=== PATIENT | male | born 1975 | race African-American/Black ===

== ENCOUNTER 2021-02-23 22:19 | Emergency (ER) | payer OTHER ==
[2021-02-23 22:23] VITALS: BMI 26.4
[2021-02-23] MEDS ORDERED: ACETAMINOPHEN 1000 MG/100 ML VIAL (NON FORMULARY) IVPB ONE (23:04)
[2021-02-23] MEDS ORDERED: SODIUM CHLORIDE 0.9% 500 ML INFUS.BAG IV ONE (23:04)
[2021-02-23 23:40] LABS: BASO % 0.3 % (0-2.0); EOS % 0.4 % (0-4.5); HEMATOCRIT 37.8 % (35.4-49); HEMOGLOBIN 12.9 GM/dL (11.7-16.9); LYMPH % 5.9 % (8-40); MCH 30.8 pg (25.7-33.7); MCHC 34.3 g/dl (32.0-35.9); MEAN CELL VOLUME 89.9 fl (80-96); MEAN PLT VOLUME 7.6 fl (7.5-11.1); MONO % 9.3 % (3.8-10.2); NEUT % 84.1 % (42.8-82.8); PLATELET COUNT 241 10^3/uL (134-434); RDW 13.6 % (11.9-15.9); WHITE BLOOD COUNT 19.1 K/mm3 (4.0-10.0)
[2021-02-23 23:49] LABS: INR 1.23 (0.83-1.09); PROTHROMBIN TIME (PATIENT) 14.8 SEC (9.7-13.0)
[2021-02-24] LABS: CHLORIDE 100 mmol/L (98-107); SODIUM 136 mmol/L (136-145)
[2021-02-24 00:03] LABS: CALCIUM 8.5 mg/dL (8.5-10.1)
[2021-02-24 00:04] LABS: ALBUMIN 3.5 g/dl (3.4-5.0); ANION GAP 9 MMOL/L (8-16); BLOOD UREA NITROGEN 11.5 mg/dL (7-18); CO2 27 mmol/L (21-32); GLUCOSE,RANDOM 93 mg/dL (74-106)
[2021-02-24 00:07] LABS: CREATININE 0.8 mg/dL (0.55-1.3); SGOT/AST 16 U/L (15-37); SGPT/ALT 26 U/L (13-61)
[2021-02-24 00:08] LABS: BILIRUBIN,TOTAL 2.1 mg/dL (0.2-1); TOT PROT 7.1 g/dl (6.4-8.2)
[2021-02-24 00:10] LABS: ALK PHOS 68 U/L (45-117)
[2021-02-24] MEDS ORDERED: CLINDAMYCIN 900 MG PREMIX IVPB 900 MG/50 ML BAG IVPB ONE ×2 (00:49→01:19)
[2021-02-24] MEDS ORDERED: MAGNESIUM SULF 50% (8.12 MEQ/2 ML-1 GM VIAL) IVPB ONE (00:50)
[2021-02-24] MEDS ORDERED: POTASSIUM CHLORIDE ORAL LIQUID 20 MEQ/15 ML PO ONE (01:00)
[2021-02-24] MEDS ORDERED: DEXAMETHASONE SOD PHOSPHATE 10 MG/1 ML VIAL IVPUSH ONE (01:01)
[2021-02-24] MEDS ORDERED: DEXAMETHASONE SOD PHOSPHATE 10 MG/1 ML VIAL ONE (01:18)
[2021-02-24] MEDS ORDERED: MAGNESIUM SULFATE IN WATER 2 GM/50 ML IVPB IVPB ONE (01:19)
[2021-02-24] MEDS ORDERED: POTASSIUM CHLORIDE ORAL LIQUID 20 MEQ/15 ML ONE (01:19)
[2021-02-24 04:40] VITALS: BP 127/76; PULSE 77; TEMP 98.6
== END 2021-02-24 04:33 | disposition short-term general hospital (02) ==
LOC: JER 22:19
PROC: 3E0333Z Introduction of Anti-inflammatory into Peripheral Vein, Percutaneous Approach (ICD-10-PCS; principal; 2021-02-23)
PROC: 3E03329 Introduction of Other Anti-infective into Peripheral Vein, Percutaneous Approach (ICD-10-PCS; 2021-02-23)
PROC: 3E033GC Introduction of Other Therapeutic Substance into Peripheral Vein, Percutaneous Approach (ICD-10-PCS; 2021-02-23)
PROC: 3E033GC Introduction of Other Therapeutic Substance into Peripheral Vein, Percutaneous Approach (ICD-10-PCS; 2021-02-23)
DX: J03.90 Acute tonsillitis, unspecified (principal)
CPT/HCPCS: 36415; 70491-TC; 80053; 83605; 84484; 85025; 85610; 85730; 87040; 87880; 93005; 93010; 99285-25; C9803; J0131; J1100; Q9967; U0003; U0005

== ENCOUNTER 2021-06-30 17:52 | Emergency (ER) | payer OTHER ==
[2021-06-30 18:07] VITALS: BP 122/75; PULSE 86; TEMP 98.1; BMI 26.4
[2021-06-30] MEDS ORDERED: ALBUTEROL SO4 2.5/IPRATROPIUM 0.5 INH SOL 3 ML VIAL.NEB. NEB SCH (18:45)
[2021-06-30] MEDS ORDERED: predniSONE 20 MG TABLET (UD) PO ONE (18:52)
[2021-06-30] MEDS ORDERED: ALBUTEROL SO4 2.5/IPRATROPIUM 0.5 INH SOL 3 ML VIAL.NEB. NEB ONE (18:59)
[2021-06-30] MEDS ORDERED: predniSONE 20 MG TABLET (UD) ONE (18:59)
[2021-06-30] MEDS ORDERED: ALBUTEROL SO4 0.083% IH SOL 2.5 MG/3 ML VIAL.NEB. NEB ONE (19:01)
[2021-06-30] MEDS ORDERED: IPRATROPIUM BR 0.02% 0.5 MG/2.5 ML VIAL.NEB. NEB ONE (19:02)
== END 2021-06-30 19:58 | disposition home or self-care (01) ==
LOC: JER 17:52
PROC: 3E0F7GC Introduction of Other Therapeutic Substance into Respiratory Tract, Via Natural or Artificial Opening (ICD-10-PCS; principal; 2021-06-30)
DX: J45.901 Unspecified asthma with (acute) exacerbation (principal)
CPT/HCPCS: 71045-TC-FY; 99284-25

== ENCOUNTER 2022-04-26 16:48 | Emergency (ER) | payer OTHER ==
[2022-04-26] MEDS ORDERED: ACETAMINOPHEN 500 MG TABLET (FP) PO ONE (16:59)
[2022-04-26] MEDS ORDERED: IBUPROFEN 600 MG TABLET (FP) PO ONE (16:59)
[2022-04-26 17:08] VITALS: BP 101/65; PULSE 109; RESP 18; TEMP 99.5; BMI 29.5
[2022-04-26] MEDS ORDERED: DEXAMETHASONE 4 MG TABLET (FP) ONE (17:34)
[2022-04-26] MEDS ORDERED: ALBUTEROL SO4 2.5/IPRATROPIUM 0.5 INH SOL 3 ML VIAL.NEB. NEB ONE (17:34)
[2022-04-26] MEDS ORDERED: DEXAMETHASONE LIQUID 0.5 MG/5 ML PO ONE (17:37)
[2022-04-26] MEDS ORDERED: ALBUTEROL SO4 2.5/IPRATROPIUM 0.5 INH SOL 3 ML VIAL.NEB. NEB SCH (17:45)
[2022-04-26 18:11] LABS: THROAT:GRP A STREP NOT DETECTED (NOTDETECTED)
== END 2022-04-26 18:33 | disposition left against medical advice (07) ==
LOC: JER 16:48
PROC: 3E0F7GC Introduction of Other Therapeutic Substance into Respiratory Tract, Via Natural or Artificial Opening (ICD-10-PCS; principal; 2022-04-26)
DX: J45.21 Mild intermittent asthma with (acute) exacerbation (principal)
CPT/HCPCS: 0241U-QW; 87651; 99284-25

== ENCOUNTER 2022-06-29 21:21 | Emergency (ER) | payer OTHER ==
[2022-06-29] MEDS ORDERED: ALBUTEROL SO4 2.5/IPRATROPIUM 0.5 INH SOL 3 ML VIAL.NEB. NEB ONE ×2 (21:31→21:49)
[2022-06-29 21:35] VITALS: RESP 24; BMI 29.5
[2022-06-29] MEDS ORDERED: methylPREDNISolone NA SUCC 125 MG/2 ML VIAL IVPUSH ONE (21:46)
[2022-06-29] MEDS ORDERED: methylPREDNISolone NA SUCC 125 MG/2 ML VIAL ONE (21:50)
[2022-06-29] MEDS: ALBUTEROL SO4 2.5/IPRATROPIUM 0.5 INH SOL 3 ML VIAL.NEB. NEB SCH (21:57)
[2022-06-29] MEDS ORDERED: ALBUTEROL SO4 0.083% IH SOL 2.5 MG/3 ML VIAL.NEB. NEB SCH (22:30)
[2022-06-29 23:16] VITALS: BP 121/88; PULSE 94; TEMP 98
== END 2022-06-29 23:52 | disposition home or self-care (01) ==
LOC: JER 21:21
PROC: 3E0F7GC Introduction of Other Therapeutic Substance into Respiratory Tract, Via Natural or Artificial Opening (ICD-10-PCS; principal; 2022-06-29)
PROC: 3E033GC Introduction of Other Therapeutic Substance into Peripheral Vein, Percutaneous Approach (ICD-10-PCS; 2022-06-29)
DX: J45.909 Unspecified asthma, uncomplicated (principal)
CPT/HCPCS: 71046-TC-FY; 99284-25

== ENCOUNTER 2024-01-31 22:40 | Emergency (ER) | payer OTHER ==
[2024-01-31 22:48] VITALS: BP 117/71; PULSE 99; RESP 20; TEMP 99.2; BMI 29.5
[2024-01-31] MEDS ORDERED: ALBUTEROL SO4 2.5/IPRATROPIUM 0.5 INH SOL 3 ML VIAL.NEB. NEB ONE ×3 (22:51→23:28)
[2024-01-31] MEDS ORDERED: DEXAMETHASONE SOD PHOSPHATE 10 MG/1 ML VIAL ONE (22:55)
[2024-01-31] MEDS ORDERED: predniSONE 20 MG TABLET (UD) PO ONE (22:56)
[2024-01-31] MEDS: DEXAMETHASONE SOD PHOSPHATE 10 MG/1 ML VIAL IM ONE (23:02)
[2024-01-31] MEDS: ALBUTEROL SO4 2.5/IPRATROPIUM 0.5 INH SOL 3 ML VIAL.NEB. NEB SCH (23:27)
== END 2024-01-31 23:58 | disposition home or self-care (01) ==
LOC: JER 22:40
PROC: 3E023GC Introduction of Other Therapeutic Substance into Muscle, Percutaneous Approach (ICD-10-PCS; principal; 2024-01-31)
PROC: 3E0F7GC Introduction of Other Therapeutic Substance into Respiratory Tract, Via Natural or Artificial Opening (ICD-10-PCS; 2024-01-31)
DX: J45.21 Mild intermittent asthma with (acute) exacerbation (principal); R06.02 Shortness of breath
CPT/HCPCS: 99284-25; J1100